=== PATIENT | male | born 1990 | race Caucasian/White ===

== ENCOUNTER 2020-12-07 16:15 | Emergency (ER) | payer OTHER ==
[~2020-12-07] VITALS: Ht 188 cm; Wt 98.9 kg
[2020-12-07] MEDS ORDERED: PENICILLIN V P500 MG PO (16:34)
[2020-12-07] MEDS ORDERED: IBUPROFEN 200 MG TAB PO ONE (16:45)
[2020-12-07] MEDS ORDERED: ACETAMINOPHEN 325 MG TAB PO NR (16:45)
[2020-12-07] MEDS ORDERED: ONDANSETRON ODT4 MG PO (16:59)
[2020-12-07] MEDS ORDERED: TYLENOL # 31 EA PO (16:59)
[2020-12-07] MEDS ORDERED: DIPHENHYDRAMINE50 M1 PO (16:59)
[2020-12-07] MEDS ORDERED: IBUPROFEN 600 MG TAB ONE (17:06)
[2020-12-07] MEDS ORDERED: LIDOCAINE VISC 2% SOLN 15 ML UDC ONE (17:06)
[2020-12-07] MEDS ORDERED: ACETAMINOPHEN 325 MG TAB ONE (17:07)
[2020-12-07 17:39] VITALS: BP 139/87
== END 2020-12-07 17:10 | disposition home or self-care (01) ==
LOC: FSED 16:45
DX: R21 Rash and other nonspecific skin eruption (principal); B97.11 Coxsackievirus as the cause of diseases classified elsewhere; R11.0 Nausea; R19.7 Diarrhea, unspecified
CPT/HCPCS: 83518; 87400; 99283

== ENCOUNTER 2022-11-13 16:31 | Observation (INO) | payer OTHER ==
[~2022-11-13] VITALS: Ht 188 cm; Wt 97.5 kg
[~2022-11-13 16:31] MED LIST: DIPHENHYDRAMINE50 M1 PO; ONDANSETRON ODT4 MG PO; PENICILLIN V P500 MG PO; TYLENOL # 31 EA PO
[2022-11-13] MEDS ORDERED: SODIUM CHLORIDE FLUSH 10 ML SYR IV PRN (17:00)
[2022-11-13 17:08] LABS: BASOPHILS # (AUTO) 0.1 (0.0-0.1); BASOPHILS % 0.6 % (0.0-1.0); EOSINOPHILS # (AUTO) 0.3 (0.0-0.4); HEMATOCRIT 45.2 % (38.2-49.6); HEMOGLOBIN 15.1 g/dL (14.0-18.0); LYMPHOCYTES # (AUTO) 2.6 (1.0-3.2); MEAN CORPUSCULAR HEMOGLOBIN 29.3 pg (28-32); MEAN CORPUSCULAR HGB CONC 33.4 g/dL (31-35); MEAN CORPUSCULAR VOLUME 87.8 fL (81-99); MONOCYTES # (AUTO) 0.7 (0.2-0.8); MONOCYTES % 7.9 % (4.4-11.3); NEUTROPHILS # (AUTO) 4.9 (2.1-6.9); NEUTROPHILS % 57.3 % (38.7-80.0); PLATELET COUNT 232 x10e3/uL (140-360); RED BLOOD COUNT 5.15 x10e6/uL (4.3-5.7); RED CELL DISTRIBUTION WIDTH 13.2 % (11.7-14.4)
[2022-11-13 17:18] LABS: ALBUMIN 4.4 g/dL (3.5-5.0); ALBUMIN/GLOBULIN RATIO 1.3 (0.8-2.0); ANION GAP 12.9 mmol/L (8-16); CALCIUM 9.3 mg/dL (8.4-10.2); CREATININE, SERUM 0.95 mg/dL (0.72-1.25); POTASSIUM 3.9 mmol/L (3.5-5.1)
[2022-11-13 17:37] LABS: CLARITY,URINE CLEAR (CLEAR); COLOR,URINE YELLOW (YELLOW); KETONES,URINE NEGATIVE (NEGATIVE); LEUKOCYTE ESTERASE ,URINE NEGATIVE (NEGATIVE); NITRITE,URINE NEGATIVE (NEGATIVE); PROTEIN,URINE DIPSTICK NEGATIVE (NEGATIVE); URINE UROBILINOGEN 0.2 mg/dL (0.2 - 1)
[2022-11-13] MEDS ORDERED: KETOROLAC TROMETHAMINE 30 MG/ML VIAL IV STA (18:21)
[2022-11-13 18:22] LABS: WBC,URINE (MAN) 0-5 /HPF (0-5)
[2022-11-13] MEDS ORDERED: IOPAMIDOL 370 MG/ML 100 ML INFUS..BTL INJ ONE (18:30)
[2022-11-13] MEDS ORDERED: ONDANSETRON HCL INJ 2MG/ML 2ML 2 MG/ML VIAL IV PRN (20:15)
[2022-11-13] MEDS ORDERED: Morphine 4mg INJECTION 4 MG/ML INJ IV PRN (20:15)
[2022-11-13 23:30] VITALS: BP_SYST 128; BP_DIAS 91; BP_DIAS 99; PULSE 70; RESP 18; TEMP 97.5; O2SAT 98
[2022-11-14] VITALS (8 sets, daily range): BP systolic 112–128; BP diastolic 64–99; PULSE 52–78; RESP 18–22; TEMP 97.5–98.1; O2SAT 96–100
[2022-11-14] MEDS: SODIUM CHLORIDE 0.9% 1000ML 1,000 ML IV SCH ×4 (01:02→20:43)
[2022-11-14 06:03] LABS: BASOPHILS # (AUTO) 0.1 (0.0-0.1); BASOPHILS % 0.8 % (0.0-1.0); EOSINOPHILS # (AUTO) 0.3 (0.0-0.4); EOSINOPHILS % 4.5 % (0.0-6.0); HEMATOCRIT 43.6 % (38.2-49.6); HEMOGLOBIN 14.7 g/dL (14.0-18.0); LYMPHOCYTES # (AUTO) 2.9 (1.0-3.2); LYMPHOCYTES % 44.4 % (18.0-39.1); MEAN CORPUSCULAR HEMOGLOBIN 29.3 pg (28-32); MEAN CORPUSCULAR HGB CONC 33.7 g/dL (31-35); MONOCYTES # (AUTO) 0.6 (0.2-0.8); MONOCYTES % 9.7 % (4.4-11.3); NEUTROPHILS # (AUTO) 2.6 (2.1-6.9); NEUTROPHILS % 40.4 % (38.7-80.0); PLATELET COUNT 194 x10e3/uL (140-360); RED BLOOD COUNT 5.01 x10e6/uL (4.3-5.7); RED CELL DISTRIBUTION WIDTH 13.1 % (11.7-14.4)
[2022-11-14 06:36] LABS: ANION GAP 11.8 mmol/L (8-16); CALCIUM 8.6 mg/dL (8.4-10.2); CREATININE, SERUM 0.87 mg/dL (0.72-1.25); POTASSIUM 3.8 mmol/L (3.5-5.1)
[2022-11-15] VITALS: BP 133/90; PULSE 75; RESP 20; TEMP 98.1; O2SAT 100
[2022-11-15 04:00] VITALS: BP 133/85; PULSE 78; RESP 20; TEMP 98.4; O2SAT 98
[2022-11-15] MEDS: SODIUM CHLORIDE 0.9% 1000ML 1,000 ML IV SCH (05:04)
[2022-11-15 06:05] LABS: BASOPHILS % 0.6 % (0.0-1.0); EOSINOPHILS # (AUTO) 0.2 (0.0-0.4); EOSINOPHILS % 2.3 % (0.0-6.0); HEMATOCRIT 42.5 % (38.2-49.6); HEMOGLOBIN 13.8 g/dL (14.0-18.0); LYMPHOCYTES # (AUTO) 2.1 (1.0-3.2); LYMPHOCYTES % 31.7 % (18.0-39.1); MEAN CORPUSCULAR HEMOGLOBIN 28.9 pg (28-32); MEAN CORPUSCULAR HGB CONC 32.5 g/dL (31-35); MEAN CORPUSCULAR VOLUME 89.1 fL (81-99); MONOCYTES # (AUTO) 0.6 (0.2-0.8); MONOCYTES % 8.5 % (4.4-11.3); NEUTROPHILS # (AUTO) 3.8 (2.1-6.9); NEUTROPHILS % 56.7 % (38.7-80.0); PLATELET COUNT 205 x10e3/uL (140-360); RED BLOOD COUNT 4.77 x10e6/uL (4.3-5.7); RED CELL DISTRIBUTION WIDTH 12.7 % (11.7-14.4)
[2022-11-15 06:23] LABS: ALBUMIN/GLOBULIN RATIO 1.4 (0.8-2.0); ANION GAP 12.5 mmol/L (8-16); CALCIUM 8.4 mg/dL (8.4-10.2); CREATININE, SERUM 0.8 mg/dL (0.72-1.25); MAGNESIUM 1.8 MG/DL (1.3-2.1); POTASSIUM 3.5 mmol/L (3.5-5.1)
[2022-11-15 08:18] VITALS: BP 124/84; PULSE 60; RESP 19; TEMP 97.8; O2SAT 99
[2022-11-15 09:37] VITALS: BP 109/60; PULSE 60; RESP 19; TEMP 97.8; O2SAT 99
== END 2022-11-15 10:30 | disposition home or self-care (01) ==
LOC: ER 16:36 → ERHOLD 20:11 → MED/SURG2 23:29
PROVIDERS: ADMIT Family Medicine; ATTEND Family Medicine
DX: R10.31 Right lower quadrant pain (principal); R50.9 Fever, unspecified; K57.30 Diverticulosis of large intestine without perforation or abscess without bleeding; Z20.822 Contact with and (suspected) exposure to COVID-19; F17.200 Nicotine dependence, unspecified, uncomplicated
CPT/HCPCS: 0223U; 36415 ×3; 74177; 80048; 80053 ×2; 81001; 83735; 85025 ×3; 96361; 99284; G0378 ×3; J1885; J7030 ×2; Q9967